=== PATIENT | male | born 1965 | race Caucasian/White ===

== ENCOUNTER 2018-07-08 02:43 | Inpatient (IN) | payer MEDICAID ==
[~2018-07-08] VITALS: Ht 177.8 cm; Wt 73.9 kg
--- NOTE | 2018-07-08 05:16 | NUR ---
RN ADMITTING NOTES PATIENT RECEIVED, FROM [facility], PATIENT IS AGITATION AND WANTING TO GO OUTSIDE TO SMOKE MARIJJUANNA, ATTEMPTED TO ADVISE PATIENT REGARDING RULES, PATIENT STILL WANTS TO GO OUT AND SMOKE, PATIENT HAS MARIJUANNA AND PIPE AND REFUSING TO SURRENDER TO PLACE IN [place]. STATES " IM NOT GOING TO GIVE TO YOU". WAS ABLE TO PLACE TELE MONITOR ON SR 84, VITAL SIGNS TAKEN 173/103,84,98.2,19,96% RA, MADE DR. MALDONADO AWARE OF BLOOD PRESSURE AND REQUESTED FOR ADMITTING ORDERS, WILL ATTEMPT TO REDIRECTED PATIENT. AWAITING ADMITTING ORDERS.
[2018-07-08 05:30] VITALS: BP 173/103
[2018-07-08] MEDS ORDERED: GLIP5TAB13 PO (05:51)
[2018-07-08] MEDS ORDERED: CARV12.52 PO (05:51)
[2018-07-08 06:20] VITALS: BP 173/103
[2018-07-08] MEDS ORDERED: ZOLPIDEM TARTRATE 5 MG TABLET PO PRN (06:30)
[2018-07-08] MEDS ORDERED: MAGNESIUM HYDROXIDE 30 ML UDC PO PRN (06:30)
[2018-07-08] MEDS ORDERED: MAG HYDROX/AL HYDROX/SIMETH 30 ML UDC PO PRN (06:30)
[2018-07-08] MEDS ORDERED: Z GUARD REMEDY 2 OZ OINT TP PRN (06:30)
[2018-07-08] MEDS ORDERED: ACETAMINOPHEN 325 MG TABLET PO PRN (06:30)
[2018-07-08] MEDS ORDERED: ONDANSETRON HCL/PF 4 MG/2 ML VIAL IVP PRN (06:30)
[2018-07-08] MEDS ORDERED: HYDROCODONE/APAP 5/325MG 1 EACH TABLET PO PRN (06:30)
--- NOTE | 2018-07-08 07:15 | NUR ---
RN CLOSING TELE NOTES PATIENT REMAINS IN ROOM , NO NEW ORDERS PER MD FOR B/P OF 173/103, PATIENT IS NOT IN DISTRESS AT THIS TIME, HOWEVER ANXIOUS IN ROOM, WALKING AROUND, PATIENT MADE AWARE OF FACILITY POLICY REGARDING SMOKING, IV SITE TO LEFT FA #18 AND RIGHT FA #20 INTACT AND PATENT, NO REDNESS, NO INFILTRATION, PATIENT REFUSED TO HAVE STREET CLOTHES CHANGED, REFUSED TO HAVE MRSA SWAB DONE, REFUSED TO SURRENDER SMOKING BELONGINGS, STATES " IM NOT GOING TO GIVE IT YOU".REFUSED BELONGINGS CHECK, ALLOWED TO TAKE PICTURE OF FOOT AND CLEANSE AND PLACE DRY DRESSING, MD MADE AWARE, IT SUPPORT TECHNICIAN IN PLACE, SR 84. ALL NEEDS ATTENDED AT THIS TIME, WILL CONTINUE TO MONITOR AND ENDORSE TO NEXT SHIFT.
--- NOTE | 2018-07-08 07:36 | NUR ---
SEQUINS SLINGER OPENING NOTES RECEIVED PT SITTING ON THE CHAIR WITH HEAD ON THE TABLE. AWAKE, A/O X 4. DENIES PAIN. TOLERATING RA, BREATHING EVEN AND UNLABORED. PIVS TO LFA G18 AND FRA G20 NOTED; PT REFUSED FOR IT TO BE FLUSHED AT THIS MOMENT. . PT DENIES FOR ANY QUESTIONS AND CONCERNS AT THIS MOMENT WELL. CALL LIGHT KEPT WITHIN REACH. OFFERED TO USE IT FOR ANY CONCERNS. WILL CONTINUE PLAN OF CARE.
--- NOTE | 2018-07-08 07:40 | NUR ---
SENIOR STORAGE ADMINISTRATOR NOTES PT ON TELEMONITORING, WITH SR HEART RATE OF 69.
[2018-07-08 07:57] LABS: BASOPHILS % (AUTO) 0.6 % (0.0-2.0); EOSINOPHILS % (AUTO) 1.4 % (0.0-6.0); HEMATOCRIT 30 % (39-51); HEMOGLOBIN 9.9 g/dL (13.5-17.5); LYMPHOCYTES # (AUTO) 1.2 /CMM (0.8-4.8); LYMPHOCYTES % (AUTO) 16.1 % (20.0-44.0); MEAN CORPUSCULAR HGB CONC 34 g/dl (31.0-36.0); MEAN CORPUSCULAR VOLUME 94 fL (80-96); MONOCYTES # (AUTO) 0.5 /CMM (0.1-1.30); MONOCYTES % (AUTO) 6.8 % (2.0-12.0); NEUTROPHILS # (AUTO) 5.4 /CMM (1.8-8.9); NEUTROPHILS % (AUTO) 75.1 % (43.0-81.0); PLATELET COUNT (AUTO) 369 /CMM (150-450); RED BLOOD CELL COUNT(AUTO) 3.15 MIL/uL (4.5-6.0); WHITE BLOOD COUNT (AUTO) 7.2 K/uL (4.3-11.0)
[2018-07-08 08:00] VITALS: BP 151/69
[2018-07-08 08:16] LABS: ALBUMIN 2.2 g/dL (3.4-5.0); BILIRUBIN,TOTAL 0.2 mg/dL (0.2-1.0); CALCIUM, SERUM 7.7 mg/dL (8.5-10.1); CREATININE 3.3 mg/dL (0.6-1.3); MAGNESIUM 2.5 mg/dL (1.8-2.4); PHOSPHORUS 5.2 mg/dL (2.5-4.9); POTASSIUM 5.1 mmol/L (3.5-5.1); TOTAL PROTEIN, SERUM 6.2 g/dL (6.4-8.2)
[2018-07-08 08:27] LABS: THYROID STIMULATING HORMONE 0.779 uIU/mL (0.358-3.74)
[2018-07-08] MEDS ORDERED: DEXTROSE 50%-WATER 50 ML DISP.SYRIN IV PRN (09:00)
[2018-07-08] MEDS ORDERED: INSULIN REGULAR, HUMAN 100 UNIT/ML 3 ML VIAL SQ PRN (09:00)
[2018-07-08] MEDS ORDERED: FEE PK DOSING 1 MIN EA MC ONE (09:10)
[2018-07-08] MEDS: CARVEDILOL 12.5 MG TABLET PO SCH ×2 (09:12→16:36)
[2018-07-08] MEDS: glipiZIDE 5 MG TABLET PO SCH ×2 (09:12→16:34)
[2018-07-08] MEDS: ENOXAPARIN SODIUM 40 MG/0.4 ML DISP.SYRIN SQ SCH (09:16)
[2018-07-08] MEDS: ASPIRIN 81 MG TAB.CHEW PO SCH (09:30)
[2018-07-08 12:00] VITALS: BP 145/90
[2018-07-08] MEDS: BLOOD SUGAR DIAGNOSTIC 1 EACH STRIP IN SCH ×3 (12:12→21:38)
[2018-07-08 16:00] VITALS: BP 149/72
--- NOTE | 2018-07-08 16:04 | NUR ---
SUPERVISOR ASPHALT PAVING NOTES PT'S ULTRASOUND OF KIDNEY RESULT RELAYED TO FASHION DIRECTOR PARTY PLAN SALES NN. NO NEW ORDERS NOTED AT THIS TIME.
--- NOTE | 2018-07-08 17:03 | NUR ---
MIGRATORY GAME BIRD BIOLOGIST NOTES RECEIVED ORDER OF TRANSESOPHAGEAL ECHOCARDIOGRAM. PT AND DAUGHTER/ANATOLY MADE AWARE AND WILL OBTAIN CONSENT. RISK AND BENEFITS EXPLAINED.
--- NOTE | 2018-07-08 18:24 | NUR ---
OFFICE SERVICE COORDINATOR CLOSING NOTES PT WALKING AROUND THE ROOM, ACCOMPANIED BY DAUGHTER. A/O X 4. TOLERATING RA, BREATHING EVEN AND UNLABORED. DENIES PAIN. PIVS TO LFA G18 AND RFA G40, BOTH FLUSHED WITH NS, INTACT AND PATENT. ALL NEEDS ATTENDED. PT ABLE TO MAKE NEEDS KNOWN. PT TO BE SCHEDULED FOR TRASESOPHAGEAL ECHOCARDIOGRAM ON 07/10 829, CONSENT AT BEDSIDE WITH DAUGHTER WAITING FOR A BROTHER TO COME TO DISCUSS THE PROCEDURE. WILL ENDORSE TO NEXT SHIFT NURSE FOR ADRIANNE. PT'S BED KEPT IN LOWEST, LOCKED POSITION WITH SR X2.
--- NOTE | 2018-07-08 19:30 | NUR ---
MS RN NOTES RECEIVED OOB SITTING EATING HIS YOGURT,A/O X4,DENIES DISCOMFORTS,RIGHT FOOT 2ND TOE DRESSING INTACT AND DRY.AMBULATORY,CALL LIGHT IN REACH NEEDS ANTICIPATED.
[2018-07-08 20:00] VITALS: BP 136/79
--- NOTE | 2018-07-08 21:30 | NUR ---
MS RN NOTES DUE ROCEPHIN 1GM IVPB HUNG
[2018-07-08] MEDS: ATORVASTATIN 40 MG TABLET PO SCH (21:37)
[2018-07-08] MEDS: CEFTRIAXONE 1 G in IV D5W 50 ML IV SCH (21:37)
[2018-07-08] MEDS: VANCOMYCIN 1 GM in IV D5W 250 ML IV SCH (23:32)
[2018-07-09] VITALS: BP 144/81
--- NOTE | 2018-07-09 | NUR ---
ASP NET SOFTWARE DEVELOPER NOTES DUE VANCOMYCIN 1GM IVPB HUNG
[2018-07-09 03:08] LABS: APPEARANCE,URINE CLEAR (CLEAR); BILIRUBIN,URINE NEGATIVE (NEGATIVE); BLOOD, URINE 1+ Ery/uL (NEGATIVE); COLOR,URINE YELLOW (YELLOW); KETONES,URINE NEGATIVE (NEGATIVE); LEUKOCYTE ESTERASE ,URINE NEGATIVE (NEGATIVE); NITRITE, URINE NEGATIVE (NEGATIVE); PH,URINE 6.5 (5.0-8.0); PROTEIN,URINE 3+ mg/dl (NEGATIVE); UGLUCOSE NEGATIVE (NEGATIVE); UROBILINOGEN,URINE 0.2 EU/dL (0.2)
[2018-07-09 03:16] LABS: BACTERIA,URINE None seen /HPF (None Seen); CREATININE, URINE 38.3 MG/DL (30.0-125.0); MUCUS,URINE Few /LPF (None Seen); RBC,URINE 0-2 /HPF (0-2); SQUAMOUS EPITHELIAL CELL,UR Few /HPF (None Seen); URINE TOTAL PROTEIN 432.2 mg/dL (0-11.9)
[2018-07-09 04:39] LABS: EOSINOPHIL,URINE None Seen
--- NOTE | 2018-07-09 06:00 | NUR ---
LINE SERVER NOTES SR-60 ON TELE MONITOR.NOTED SMELL MARIJUANA INSIDE THE ROOM.PATIENT ASLEEP,AROUSABLE TO VERBAL STIMULI.NO COMPLAINTS OF PAIN,SALINE LOCK REMAINS PATENT ON BOTH ARMS.POSSIBLE LUCY TOMORROW PER CARDIO.IN NO ACUTE DISTRESS.WILL ENDORSE TO DAY NURSE FOR ADRIANNE.
[2018-07-09 06:47] LABS: BASOPHILS # (AUTO) 0.1 /CMM (0.0-0.2); EOSINOPHILS % (AUTO) 1.9 % (0.0-6.0); HEMATOCRIT 29 % (39-51); HEMOGLOBIN 9.6 g/dL (13.5-17.5); LYMPHOCYTES # (AUTO) 1.7 /CMM (0.8-4.8); LYMPHOCYTES % (AUTO) 31.4 % (20.0-44.0); MEAN CORPUSCULAR HGB CONC 33 g/dl (31.0-36.0); MEAN CORPUSCULAR VOLUME 94 fL (80-96); MONOCYTES # (AUTO) 0.5 /CMM (0.1-1.30); NEUTROPHILS % (AUTO) 56.7 % (43.0-81.0); PLATELET COUNT (AUTO) 344 /CMM (150-450); RED BLOOD CELL COUNT(AUTO) 3.06 MIL/uL (4.5-6.0); WHITE BLOOD COUNT (AUTO) 5.3 K/uL (4.3-11.0)
[2018-07-09 06:51] LABS: CALCIUM, SERUM 7.7 mg/dL (8.5-10.1); CREATININE 2.9 mg/dL (0.6-1.3); MAGNESIUM 2.4 mg/dL (1.8-2.4); POTASSIUM 4.9 mmol/L (3.5-5.1)
--- NOTE | 2018-07-09 07:15 | NUR ---
RN OPENING NOTE PT WAS RECEIVED IN BED AT LOWEST AND LOCKED POSITION WITH SIDE RAILS UP X2, A/O X4 RESTING IN BED, SMELL OF MARIJUANA WAS NOTED TO BE IN THE ROOM, 0730 BLOOD SUGAR WAS TAKEN AT THIS TIME AND NOTED TO BE 89 WITH NO COVERAGE NEEDED, IV ARE PATENT AND INTACT, PLAN IS FOR HIM TO RECEIVE LUCY ON MONDAY 07/10; CONSENT AT BEDSIDE BECAUSE FAMILY WANTS TO TAKE A LOOK AT IT, SAFETY PRECAUTIONS IN PLACE, CALL LIGHT WITHIN REACH, WILL MONITOR ACCORDINGLY
[2018-07-09] MEDS: BLOOD SUGAR DIAGNOSTIC 1 EACH STRIP IN SCH ×4 (07:22→21:45)
[2018-07-09 08:00] VITALS: BP 144/74
[2018-07-09] MEDS: ASPIRIN 81 MG TAB.CHEW PO SCH (08:34)
[2018-07-09] MEDS: CARVEDILOL 12.5 MG TABLET PO SCH ×2 (08:35→16:51)
[2018-07-09] MEDS: ENOXAPARIN SODIUM 40 MG/0.4 ML DISP.SYRIN SQ SCH (08:36)
[2018-07-09] MEDS: glipiZIDE 5 MG TABLET PO SCH ×2 (08:37→16:51)
--- NOTE | 2018-07-09 08:40 | NUR ---
DIRECTOR RECREATION NOTE PT IS REFUSING TO EAT BREAKFAST STATING HE IS NOT HUNGRY AND WILL NOT EAT. BLOOD SUGAR WAS NOTED TO BE 89 THIS MORNING, WITHHELD GLIPIZIDE DUE TO PT BLOOD SUGAR BEING WNL AND BECAUSE HE IS REFUSING TO EAT AT THIS TIME. WILL MONITOR ACCORDINGLY.
[2018-07-09] MEDS: LACTOBACILLUS RHAMNOSUS GG 1 EACH CAP.SPRINK PO SCH ×2 (08:51→16:50)
--- NOTE | 2018-07-09 08:52 | NUR ---
RN NOTE PT REFUSED TO TAKE CULTURELLE AT THIS TIME, WILL MONITOR ACCORDINGLY
--- NOTE | 2018-07-09 12:02 | NUR ---
RN NOTE PT BLOOD GLUCOSE WAS NOTED TO BE 125 AT THIS TIME, NO INSULIN NEEDED AT THIS TIME ACCORDING TO SLIDING SCALE, WILL MONITOR ACCORDINGLY.
[2018-07-09 16:00] VITALS: BP 146/75
--- NOTE | 2018-07-09 17:42 | NUR ---
RN NOTE PT REFUSED TO EAT THE DINNER OFFERED TO HIM AT THIS TIME. HE STATED THAT HIS KIDS WOULD BRING HIM FOOD. HIS BLOOD SUGAR LEVEL WAS NOTED TO BE 155 AT 1730 WITH GLIPIZIDE GIVEN. HE IS HOWEVER EATING SNACKS AND DRINKING MILK AT THIS TIME. WILL MONITOR ACCORDINGLY.
--- NOTE | 2018-07-09 17:50 | NUR ---
RN NOTE PT WAS MADE AWARE OF LUCY CONSENT FORM AGAIN AT THIS TIME AND WAS INFORMED OF THE RISK AND BENEFITS TO THE PROCEDURE. HE WAS INFORMED THAT THE PROCEDURE IS PLANNED FOR TOMORROW.HE STATED HE DID NOT WANT TO HEAR IT AND THAT HIS KIDS WOULD DECIDE AND SEE ABOUT WHEN THEY COME. WILL ENDORSE TO OB NURSE RN.
--- NOTE | 2018-07-09 18:03 | NUR ---
RN CLOSING NOTE PT IN BED AT LOWEST AND LOCKED POSITION WITH SIDE RAILS UP X2, A/O X4 RESTING IN BED, IV ARE PATENT AND INTACT, PLAN IS FOR HIM TO RECEIVE LUCY ON MONDAY 07/10; CONSENT AT BEDSIDE AND WILL ENDORSE TO PAINTER AND DECORATOR TO F/U WITH IT, SAFETY PRECAUTIONS IN PLACE, CALL LIGHT WITHIN REACH, WILL ENDORSE TO ONCOMING PAINTER AND DECORATOR RN FOR ADRIANNE.
--- NOTE | 2018-07-09 19:30 | NUR ---
MS RN NOTES RECEIVED LAYING COMFORTABLY ON BED,NO SOB,PAIN ON RIGHT FOOT TOLERABLE AT THE MOMENT,SALINE LOCK ON BOTH ARMS INTACT AND PATENT.INSTRUCTED NPO EXCEPT MEDS AFTER MIDNIGHT FOR TRANSESOPHAGEAL ECHO CARDIOGRAM IN THE MORNING,AWAITING CONSENT TO BE SIGN,IF FAMILY AGREE WITH THE PROCEDURE.CALL LIGHT IN REACH,NEEDS ANTICIPATED.
[2018-07-09 20:00] VITALS: BP 134/75
[2018-07-09 20:09] VITALS: BP 134/75
--- NOTE | 2018-07-09 20:30 | NUR ---
MS RN NOTES DRESSING CHANGED DONE ON RIGHT FOOT 2ND TOE,WITH SLIGHT REDNESS NOTED.PICTURE TAKEN,ON CHART
[2018-07-09] MEDS: CEFTRIAXONE 1 G in IV D5W 50 ML IV SCH (21:45)
[2018-07-09] MEDS: ATORVASTATIN 40 MG TABLET PO SCH (21:46)
--- NOTE | 2018-07-09 22:00 | NUR ---
MS RN NOTES ACCU-CHECK BLOOD SUGAR CHECK 75,NO INSULIN COVERAGE PER SLIDING SCALE.
--- NOTE | 2018-07-09 23:30 | NUR ---
MS RN NOTES VANCOMYCIN TROUGH 19,DOSE HUNG,INFUSING AT THIS TIME.
[2018-07-09] MEDS: VANCOMYCIN 1 GM in IV D5W 250 ML IV SCH (23:42)
[2018-07-10] VITALS (7 sets, daily range): BP systolic 127–140; BP diastolic 65–78
--- NOTE | 2018-07-10 00:25 | NUR ---
MS RN NOTES SALINE LOCK ON BOTH ARMS LEAKING AT THIS TIME.NEW SALINE LOCK PLACE ON RIGHT FORE ARM #20.IV ABX RE STARTED.
--- NOTE | 2018-07-10 06:10 | NUR ---
MS RN NOTES PATIENT REFUSED TRANSESOPHAGEAL ECHOCARDIOGRAM, CHARGE NURSE AWARE,NURSING PERSONAL INJURY LITIGATION PARALEGAL MADE AWARE WELL.CLAIMED HE'S KIND OF SCARED OF THE POSSIBLE COMPLICATIONS THAT MAY ARISE.SALINE LOCK RIGHT FORE ARM REMAINS PATENT.DRESSING TO RIGHT FOOT 2ND TOE INTACT AND DRY.IN NO ACUTE DISTRESS.WILL ENDORSE TO DAY NURSE FOR ADRIANNE.
[2018-07-10 06:19] LABS: CALCIUM, SERUM 6.9 mg/dL (8.5-10.1); CREATININE 3.4 mg/dL (0.6-1.3); POTASSIUM 5.4 mmol/L (3.5-5.1)
--- NOTE | 2018-07-10 07:22 | NUR ---
RN OPENING NOTE PT IN BED AT LOWEST AND LOCKED POSITION WITH SIDE RAILS UP X2, A/O X4 RESTING IN BED, BREATHING EVEN AND UNLABORED ON RA, NO S/S OF PAIN OR DISTRESS NOTED, IV IS PATENT AND INTACT, PLAN WAS FOR HIM TO RECEIVE LUCY THIS TUESDAY BUT PT REFUSED ACCORDING TO ELECTRICAL SUPERVISOR RN WITH CHARGE AND SOFTWARE ENGINEERING ANALYST AWARE, PT BLOOD SUGAR WAS 120 THIS AM, SAFETY PRECAUTIONS IN PLACE, CALL LIGHT WITHIN REACH, WILL MONITOR ACCORDINGLY.
[2018-07-10] MEDS: BLOOD SUGAR DIAGNOSTIC 1 EACH STRIP IN SCH ×4 (07:31→21:55)
[2018-07-10] MEDS: glipiZIDE 5 MG TABLET PO SCH ×2 (08:19→16:09)
[2018-07-10] MEDS: ASPIRIN 81 MG TAB.CHEW PO SCH (08:19)
[2018-07-10] MEDS: LACTOBACILLUS RHAMNOSUS GG 1 EACH CAP.SPRINK PO SCH ×2 (08:19→16:09)
[2018-07-10] MEDS: CARVEDILOL 12.5 MG TABLET PO SCH ×2 (08:20→16:10)
[2018-07-10] MEDS: ENOXAPARIN SODIUM 40 MG/0.4 ML DISP.SYRIN SQ SCH (08:21)
--- NOTE | 2018-07-10 12:15 | NUR ---
RN NOTE PT BLOOD GLUCOSE WAS NOTED TO BE 185 AT THIS TIME, PT TOOK MORNING DOSE OD=F GLIPIZIDE WITH ANOTHER DOSE SCHEDULED LATER TODAY, H WAS INFORMED OF INSULIN BUT SAYS HES ALREADY TAKING THE PILL SO HE DOES NOT NEED IT, WILL MONITOR ACCORDINGLY.
--- NOTE | 2018-07-10 18:18 | NUR ---
RN CLOSING NOTE PT IN BED AT LOWEST AND LOCKED POSITION WITH SIDE RAILS UP X2, A/O X4 RESTING IN BED, IV ARE PATENT AND INTACT, BREATHING EVEN AND UNLABORED ON RA, NO CURRENT COMPLAINS OF PAIN OR DISTRESS, WOUND DEBRIDEMENT PERFORMED TODAY ON RIGHT FOOT, SAFETY PRECAUTIONS IN PLACE, CALL LIGHT WITHIN REACH, WILL ENDORSE TO ONCOMING TITLE 1 TUTOR RN FOR ADRIANNE.
--- NOTE | 2018-07-10 19:35 | NUR ---
RN OPENING NOTES RECEIVED REPORT FROM DAYSHIFT JUANIS MATTHEW. FOUND Pt ASLEEP IN BED. RESPIRATIONS EVEN AND UNLABORED. NO S/S OF ACUTE DISTRESS OR SOB NOTED. PER REPORT Pt IS A/OX4, VERBAL, ABLE TO MAKE NEEDS KNOWS. Pt IS AMB WITH BRP. S/P R FOOT WOUND DEBRIDEMENT EARLIER TODAY WITH DR RAMOS. Pt REFUSED LUCY (TRANSESOPHAGEAL ECHOCARDIOGRAM) EARLIER THIS MORNING. POSSIBLE D/C TOMORROW TO SNF ([facility]) PENDING ON INSURANCE APPROVAL. SAFETY MEASURES IN PLACE. BED LOW, LOCKED, HOB ELEVATED, SIDE RAILS UP, CALL LIGHT AND BEDSIDE TABLE WITHIN REACH. WILL CONTINUE TO MONITOR Pt's CONDITION AND SAFETY THROUGHOUT THE NIGHT.
[2018-07-10] MEDS: CEFTRIAXONE 1 G in IV D5W 50 ML IV SCH (21:55)
[2018-07-10] MEDS: ATORVASTATIN 40 MG TABLET PO SCH (21:55)
--- NOTE | 2018-07-10 22:10 | NUR ---
RN NOTES HS ACCUCHECK 80. NO INSULIN COVERAGE NEEDED AT THIS TIME.
[2018-07-11] MEDS: VANCOMYCIN 1 GM in IV D5W 250 ML IV SCH ×2
--- NOTE | 2018-07-11 00:15 | NUR ---
RN NOTES VANCO TROUGH FROM 07/10/18 @2300 RESULT:22. INFORMED DR MALDONADO OF Pt's VANCO TROUGH OF 22. HELD SCHEDULED VANCO @0000 TONIGHT 07/11/18; DR MALDONADO AWARE.
--- NOTE | 2018-07-11 06:40 | NUR ---
RN NOTES AC ACCUCHECK 73. NO INSULIN COVERAGE NEEDED AT THIS TIME. Pt IS EATING.
--- NOTE | 2018-07-11 06:41 | NUR ---
RN CLOSING NOTES NO SIGNIFICANT CHANGES IN Pt's CONDITION DURING THE NIGHT. Pt REMAINS STABLE PER BASELINE. NO S/S OF ACUTE DISTRESS OR SOB NOTED DURING THE SHIFT. ALL NEEDS MET AND ATTENDED TO. SAFETY MEASURES IN PLACE. WILL ENDORSE TO DAYSHIFT RN FOR Pt's ADRIANNE.
[2018-07-11] MEDS: BLOOD SUGAR DIAGNOSTIC 1 EACH STRIP IN SCH ×3 (06:43→17:50)
[2018-07-11 07:11] LABS: *SPE A/G RATIO 0.8 (0.7-1.7); *SPE ALBUMIN 2.1 g/dL (2.9-4.4); *SPE ALPHA-1-GLOBULIN 0.2 g/dL (0.0-0.4); *SPE ALPHA-2-GLOBULIN 0.8 g/dL (0.4-1.0); *SPE GLOBULIN, TOTAL 2.7 g/dL (2.2-3.9); *SPE M-SPIKE Not Observed g/dL (Not Observed); *SPEGAMMA GLOBULIN 0.6 g/dL (0.4-1.8)
--- NOTE | 2018-07-11 07:12 | NUR ---
RN OPENING NOTE PT IN BED AT LOWEST AND LOCKED POSITION WITH SIDE RAILS UP X2, A/O X4 RESTING IN BED, BREATHING EVEN AND UNLABORED ON RA, NO S/S OF PAIN OR DISTRESS NOTED, IV IS PATENT AND INTACT, PT BLOOD SUGAR WAS 73 THIS AM, PLAN IS FOR HIM TO POSSIBLY BE D/C TO A SNF, SAFETY PRECAUTIONS IN PLACE, CALL LIGHT WITHIN REACH, WILL MONITOR ACCORDINGLY.
[2018-07-11 07:31] LABS: CALCIUM, SERUM 7.9 mg/dL (8.5-10.1)
[2018-07-11 07:57] VITALS: BP 148/82
[2018-07-11] MEDS: CARVEDILOL 12.5 MG TABLET PO SCH ×2 (08:18→17:24)
[2018-07-11] MEDS: ASPIRIN 81 MG TAB.CHEW PO SCH (08:18)
[2018-07-11] MEDS: LACTOBACILLUS RHAMNOSUS GG 1 EACH CAP.SPRINK PO SCH ×2 (08:18→17:24)
[2018-07-11] MEDS: glipiZIDE 5 MG TABLET PO SCH ×2 (08:18→17:24)
[2018-07-11] MEDS: ENOXAPARIN SODIUM 40 MG/0.4 ML DISP.SYRIN SQ SCH (08:19)
[2018-07-11] MEDS ORDERED: SODIUM POLYSTYRENE SULFONATE 15 G/60 ML BOTTLE PO ONE (09:30)
--- NOTE | 2018-07-11 10:59 | NUR ---
RN NOTE RECEIVED CALL FROM [facility] FROM PHARMACY STATING THAT A DOSE OF VANCOMYCIN WILL BE GIVEN AT 12 DUE TO PLAN FOR THE PT TO BE D/C TODAY. HE STATED VANCO TROUGH DOES NOT NEED TO BE REDONE AND THAT IT IS OKAY TO GIVE. WILL MONITOR ACCORDINGLY. Addendum: 07/11/18 at 1103 by TIFF PIERRE RN VANCO TROUGH WAS ORDERED AND SCHEDULED FOR 1100 THIS MORNING, WILL MONITOR ACCORDINGLY
[2018-07-11] MEDS ORDERED: VANCOMYCIN 0.75 GM in IV D5W 250 ML IV SCH (12:00)
[2018-07-11] MEDS ORDERED: LINEZOLID RTU BAG 600 MG in PREMIX 1 EA IV SCH (13:00)
[2018-07-11 14:11] LABS: PTH, INTACT 187 pg/mL (15-65)
[2018-07-11 16:00] VITALS: BP 134/69
--- NOTE | 2018-07-11 16:29 | NUR ---
RN NOTE REPORT GIVEN TO SOHAIL AT [facility] AT THIS TIME
[2018-07-11 17:24] VITALS: BP 134/69
[2018-07-11] MEDS ORDERED: CARV12.52 PO (18:55)
[2018-07-11] MEDS ORDERED: ASPI-1169 PO (18:55)
[2018-07-11] MEDS ORDERED: GLIP5TAB13 PO (18:55)
[2018-07-11] MEDS ORDERED: ATOR40TA PO (18:55)
[2018-07-11] MEDS ORDERED: DAPT350V IV (18:56)
[2018-07-11] MEDS ORDERED: CEFT1PIG2 IV (18:56)
[2018-07-11] MEDS ORDERED: LACT1CAP72 PO (18:56)
--- NOTE | 2018-07-11 18:56 | NUR ---
RN CLOSING NOTE PT SITTING IN CHAIR AT THIS TIME, A/O X4 BREATHING EVEN AND UNLABORED ON RA, NO COMPLAINTS OF ANY PAIN OR DISTRESS AT THIS TIME, EDUARDA PICC INSERTED TODAY AND IT IS PATENT AND INTACT, REPORT GIVEN TO SOHAIL AT [facility], RIGHT FOOT/TOE DRESSING CHANGED, ALL NEEDS ATTENDED TO, PLAN IS FOR HIM TO GO TO [facility] WITH DAUGHTER WILL INFORM DRAWER IN PLAIN LOOM RN, SAFETY PRECAUTIONS IN PLACE, CALL LIGHT WITHIN REACH, WILL ENDORSE TO ONCOMING DRAWER IN PLAIN LOOM RN.
--- NOTE | 2018-07-11 19:19 | NUR ---
DISCHARGE NOTE PT WAS DISCHARGED AT THIS TIME IN MEDICALLY STABLE CONDITION IN THEIR PRIVATE CAR TO [facility]. ALL EXITCARE, D/C PAPERWORK, AND BELONGING LIST SIGNED, DISCUSSED, AND HANDED TO THE PATIENT. PRESCRIPTIONS WERE ALSO HANDED TO THE PT ALONG WITH ALL HIS PAPERWORK. PT LEFT WITH ALL BELONGINGS IN HAND. PT LEFT WITH A EDUARDA PICC IN PLACE DUE TO PLAN FOR HIM TO RECEIVE IV ABX FOR 6 MORE WEEKS, IV ON HIS HAND WAS REMOVED. PT REFUSED FOR PHOTO OF HIS WOUND ON HIS FOOT/RIGHT 2ND TOE TO BE TAKEN STATING THE DRESSING IS CLEAN AND THAT IT IS FINE AND WANTS IT TO BE LEFT ALONE. ALL NEEDS WERE ATTENDED TO DURING HIS STAY. HE LEFT AT THIS TIME WITH HIS DAUGHTER KYUNG IN THEIR PRIVATE CAR TO [facility].
== END 2018-07-11 19:20 | DRG 344 ==
LOC: TELE 05:15 → MED 07-10 09:39
PROVIDERS: ADMIT Nurse Practitioner Acute Care; ATTEND Hospitalist
DX: E11.69 Type 2 diabetes mellitus with other specified complication (principal); M86.9 Osteomyelitis, unspecified; N17.0 Acute kidney failure with tubular necrosis; E11.621 Type 2 diabetes mellitus with foot ulcer; E11.21 Type 2 diabetes mellitus with diabetic nephropathy; N18.3 Chronic kidney disease, stage 3 (moderate); I12.9 Hypertensive chronic kidney disease with stage 1 through stage 4 chronic kidney disease, or unspecified chronic kidney disease; E11.22 Type 2 diabetes mellitus with diabetic chronic kidney disease; L03.031 Cellulitis of right toe; I38 Endocarditis, valve unspecified; I25.10 Atherosclerotic heart disease of native coronary artery without angina pectoris; D64.9 Anemia, unspecified; I25.2 Old myocardial infarction; L97.519 Non-pressure chronic ulcer of other part of right foot with unspecified severity; E11.42 Type 2 diabetes mellitus with diabetic polyneuropathy; F12.90 Cannabis use, unspecified, uncomplicated; I34.0 Nonrheumatic mitral (valve) insufficiency; Z59.0 Homelessness; Z95.3 Presence of xenogenic heart valve; Z95.1 Presence of aortocoronary bypass graft; I34.8 Other nonrheumatic mitral valve disorders; Q61.3 Polycystic kidney, unspecified; E87.5 Hyperkalemia
CPT/HCPCS: 36415; 36569; 71045-TC; 76770-TC; 80048-TC; 80053-TC; 80061-TC; 80202-TC; 81000-TC; 82550-TC; 82570-TC; 82962-TC; 83735-TC; 83970; 84100-TC; 84155; 84155-TC; 84165; 84300-TC; 84443-TC; 85025-TC; 85610-TC; 85652-TC; 87040-TC; 87081-TC; 87086-TC; 93307-TC; A4216; A6402; A6403; C1751; G0378; J0696; J1650; J1815; J2020; J3370; J7050; J7060